=== PATIENT | male | born 1960 | race American Indian/Alaskan Native ===

== ENCOUNTER 2016-10-25 18:07 | Emergency (ER) | payer MEDICARE, MEDICAID ==
[2016-10-25 20:07] LABS: Basophils % (Auto) 0.5 % (0.0-1.8); Eosinophils % (Auto) 1.9 % (0.0-4.3); Hematocrit 39.9 % (35.5-45.6); Hemoglobin 13.7 gm/dl (11.8-15.2); Mean Corpuscular HGB Conc 34 % (32-34); Mean Corpuscular Hemoglobin 30 pg (28-32); Mean Corpuscular Volume 87 fl (84-94); Platelet Count 199 K/mm3 (140-440); Red Cell Distribution Width 13.8 % (13.2-15.2); White Blood Count 11.4 K/mm3 (4.5-11.0)
[2016-10-25 20:16] LABS: INR 0.92 (0.87-1.13)
[2016-10-25 20:24] LABS: Anion Gap 16 mmol/L; BUN/Creatinine Ratio 16.25; Blood Urea Nitrogen 13 mg/dL (9-20); Calcium 9.4 mg/dL (8.4-10.2); Carbon Dioxide 25 mmol/L (22-30); Glucose 81 mg/dL (75-100); Potassium 4.2 mmol/L (3.6-5.0); Sodium 139 mmol/L (137-145)
--- NOTE | 2016-10-25 20:25 | XRay Report ---
FINAL REPORT PROCEDURE: XR CHEST ROUTINE 2V TECHNIQUE: Two views of the chest are obtained HISTORY: Shortness of breath COMPARISON: No prior studies are available for comparison. FINDINGS: The heart is normal in size. There is no focal infiltrate, pneumothorax or pleural effusion. IMPRESSION: No abnormalities are seen.
[2016-10-26] MEDS ORDERED: TORADOL IM ONE (10:32)
[2016-10-26] MEDS ORDERED: ECOTRIN PO ONE (10:34)
[2016-10-26 10:49] VITALS: BP 138/76
--- NOTE | 2016-10-26 11:34 | Emergency Department Report ---
ED Chest Pain HPI - General Chief Complaint: Dyspnea/Respdistress Stated Complaint: CHEST/BACK PAIN Time Seen by Provider: 10/26/16 09:59 Source: patient Mode of arrival: Ambulatory Limitations: No Limitations - History of Present Illness Initial Comments: Patient presents to ER with complaints of left-sided chest pain 2 days.. Pain radiates to his left flank. Associated shortness of breath, cough productive of greenish sputum, no nausea or vomiting or diarrhea. Patient has history of HIV. He denies fever or chills. The patient is a chronic smoker, I counseled him regarding smoking cessation. MD Complaint: chest pain -: Gradual, days(s) (2) Onset: during rest Pain Location: left chest Pain Radiation: other (left flank and left posterior chest wall) Severity: moderate Severity scale (0 -10): 7 Quality: aching Consistency: intermittent Improves With: nothing Worsens With: nothing re: dyspnea. denies: nausea, vomting, diaphoresis, sense of impending doom Other Symptoms: cough, leg swelling, palpitations. denies: fever, syncope, acid taste in mouth Treatments Prior to Arrival: none Aspirin use within the Past 7 Days: (0) No - Related Data Previous Rx's Medication Instructions Recorded Last Taken Type Aspirin EC [Aspirin Enteric Coated 81 mg PO QDAY #30 tablet. 10/26/16 Unknown Rx TAB] methOCARBAMOL [Robaxin TAB] 1,000 mg PO Q6H PRN #20 tab 10/26/16 Unknown Rx Allergies Allergy/AdvReac Type Severity Reaction Status Date / Time Sulfa (Sulfonamide AdvReac Severe Hives Verified 10/25/16 18:23 Antibiotics) Heart Score - HEART Score History: Slightly suspicious EKG: Normal Age: 45-65 Risk factors: 1-2 risk factors Troponin: < normal limit HEART Score: 2 - Critical Actions Critical Actions: 0-3 pts:0.9-1.7%risk of adverse cardiac event.Candidate for discharge ED Review of Systems ROS: Stated complaint: CHEST/BACK PAIN Other details as noted in HPI Constitutional: see HPI, malaise, weakness. denies: chills, diaphoresis, fever Eyes: denies: eye pain, eye discharge, vision change ENT: denies: ear pain, throat pain, dental pain, hearing loss Respiratory: cough, shortness of breath, wheezing. denies: see HPI Cardiovascular: chest pain, palpitations. denies: orthopnea, edema, syncope, paroxysmal nocturnal dyspnea Endocrine: no symptoms reported Gastrointestinal: denies: abdominal pain, nausea, vomiting, diarrhea, constipation, hematemesis, hematochezia Genitourinary: denies: urgency, dysuria, frequency, hematuria, testicular pain Musculoskeletal: denies: back pain, joint swelling, arthralgia Skin: denies: rash, lesions, change in color, change in hair/nails Neurological: headache. denies: weakness, numbness, paresthesias, confusion Psychiatric: denies: depression, auditory hallucinations, visual hallucinations , homicidal thoughts Hematological/Lymphatic: denies: swollen glands ED Past Medical Hx - Past Medical History Hx HIV: Yes - Surgical History Additional Surgical History: Left ankle fusion 2004, shoulder surgery 2009 - Social History Smoking Status: Current Every Day Smoker Substance Use Type: Marijuana - Medications Home Medications: Home Medications Medication Instructions Recorded Confirmed Last Taken Type Aspirin EC [Aspirin Enteric Coated 81 mg PO QDAY #30 tablet. 10/26/16 Unknown Rx TAB] methOCARBAMOL [Robaxin TAB] 1,000 mg PO Q6H PRN #20 tab 10/26/16 Unknown Rx ED Physical Exam - General Limitations: No Limitations General appearance: alert, in distress (mild to moderate) - Head Head exam: Present: atraumatic, normocephalic, normal inspection - Eye Eye exam: Present: normal appearance, PERRL, EOMI - ENT ENT exam: Present: normal exam, normal orophraynx, mucous membranes moist - Neck Neck exam: Present: normal inspection, full ROM - Respiratory Respiratory exam: Present: normal lung sounds bilaterally - Cardiovascular Cardiovascular Exam: Present: regular rate, normal rhythm, normal heart sounds - GI/Abdominal GI/Abdominal exam: Present: soft, normal bowel sounds. Absent: tenderness, guarding, rebound, rigid, organomegaly - Rectal Rectal exam: Present: deferred - Extremities Exam Extremities exam: Present: normal inspection, full ROM, normal capillary refill. Absent: pedal edema, joint swelling - Back Exam Back exam: Present: normal inspection, full ROM. Absent: CVA tenderness (L), muscle spasm, paraspinal tenderness - Neurological Exam Neurological exam: Present: alert, oriented X3, CN II-XII intact ED Course Vital Signs 10/25/16 10/26/16 10/26/16 18:17 01:16 10:48 Temperature 98.4 F 98.5 F Pulse Rate 91 H 60 16 L Respiratory 18 18 16 Rate Blood Pressure 125/82 160/83 Blood Pressure 138/76 [Right] O2 Sat by Pulse 99 100 Oximetry EDGAR score - Edgar Score Age > 65: (0) No Aspirin use within the Past 7 Days: (0) No 3 or more CAD Risk Factors: (0) No 2 or more Angina events in past 24 hrs: (1) Yes Known CAD with more than 50% Stenosis: (0) No Elevated Cardiac Markers: (0) No ST Deviation Greater than 0.5mm: (0) No EDGAR Score: 1 ED Medical Decision Making - Lab Data Result diagrams: 10/25/16 19:29 10/25/16 19:29 - EKG Data -: EKG Interpreted by Me - EKG Data 10/26/16 13:29 Normal sinus rhythm rate of 88 beats per minutes, rightward axis and voltage criteria for LVH and Q waves in the to the 3 aVF and lateral leads no ST elevations. Critical Care Time: No Critical care attestation.: If time is entered above; I have spent that time in minutes in the direct care of this critically ill patient, excluding procedure time. ED Disposition Clinical Impression: Atypical chest pain Disposition: DC-01 TO HOME OR SELFCARE Is pt being admited?: No Does the pt Need Aspirin: Yes Condition: Stable Instructions: Chest Pain (ED) Additional Instructions: You're strongly advised to quit smoking. Prescriptions: Aspirin EC [Aspirin Enteric Coated TAB] 81 mg PO QDAY #30 tablet. methOCARBAMOL [Robaxin TAB] 1,000 mg PO Q6H PRN #20 tab PRN Reason: Chest Pain Referrals: PRIMARY CARE, [Primary Care Provider] - 3-5 Days Time of Disposition: 13:32
[2016-10-26 12:02] LABS: Creatine Kinase MB 1.8 ng/mL (0.0-4.0)
[2016-10-26 12:03] LABS: Creatine Kinase 118 units/L (55-170)
[2016-10-26] MEDS ORDERED: BABY ASPIRIN PO ONE (13:35)
== END 2016-10-26 13:46 | disposition home or self-care (01) ==
LOC: ED 18:07
DX: R07.89 Other chest pain (principal); F17.200 Nicotine dependence, unspecified, uncomplicated; F12.10 Cannabis abuse, uncomplicated; Z88.2 Allergy status to sulfonamides
CPT/HCPCS: 36415; 71020; 80048; 82550; 82553; 83880; 84484; 85025; 85610; 93005; 93010; 96372; 99284; J1885